=== PATIENT | male | born 1980 | race Asian ===

== ENCOUNTER 2022-03-10 12:56 | Emergency (ER) | payer MEDICAID ==
[2022-03-10 13:03] VITALS: BP 139/91
--- NOTE | 2022-03-10 13:08 | ED Physician Documentation ---
PD HPI URI - Stated complaint Stated Complaint: SINUS PX - Chief complaint Chief Complaint: Heent - History obtained from History obtained from: Patient - Additional information Additional information: 41-year-old gentleman presents to the emergency department requesting a work note because he has a cold. He has been sick for 2 days with sinus congestion body aches. No chest congestion or shortness of breath. No fevers. His son was recently sick with a similar illness. He took a home COVID test and it was negative. He tried to go to the walk-in clinic, but they do not take his insurance. Review of Systems Constitutional: reports: Myalgias. denies: Fever, Chills, Fatigue Nose: reports: Rhinorrhea / runny nose Throat: denies: Sore throat PD PAST MEDICAL HISTORY - Present Medications Home Medications: Ambulatory Orders Medication Instructions Recorded Confirmed Guaifenesin/Pseudoephedrne HCl 1 each PO BID PRN #20 ea 03/10/22 [Mucinex D ER 600-60 mg Tablet] - Allergies Allergies/Adverse Reactions: Allergies Allergy/AdvReac Type Severity Reaction Status Date / Time No Known Drug Allergies Allergy Verified 03/10/22 13:03 PD ED PE NORMAL - Vitals Vital signs reviewed: Yes - General General: Alert and oriented X 3, No acute distress, Well developed/nourished - Derm Derm: No rash - Neuro Neuro: Alert and oriented X 3, Normal speech Results - Vitals Vitals: Vital Signs - 24 hr 03/10/22 13:00 Temperature 36.2 C L Heart Rate 84 Respiratory 16 Rate Blood Pressure 139/91 H O2 Saturation 99 Oxygen O2 Source Room air Departure - Departure Disposition: 01 Home, Self Care Clinical Impression: Viral URI Condition: Good Record reviewed to determine appropriate education?: Yes Instructions: ED Viral Syndrome Prescriptions: Guaifenesin/Pseudoephedrne HCl [Mucinex D ER 600-60 mg Tablet] 1 each PO BID PRN #20 ea PRN Reason: congestion Comments: I sent your prescription electronically to [facility] in [place]. Return for new or worsening symptoms or if not better in a week. Forms: Activity restrictions
== END 2022-03-10 13:15 | disposition home or self-care (01) ==
LOC: ED 12:56
DX: J06.9 Acute upper respiratory infection, unspecified (principal)
CPT/HCPCS: 99281